=== PATIENT | female | born 1980 | race Caucasian/White ===

== ENCOUNTER 2020-08-16 11:56 | Emergency (ER) | payer MEDICAID ==
[~2020-08-16] VITALS: Ht 167.6 cm; Wt 61.4 kg
[2020-08-16 12:06] VITALS: Ht 167.6 cm; Wt 61.4 kg
[2020-08-16] MEDS ORDERED: CYCLOBENZAPRINE10 MG PO (13:21)
[2020-08-16] MEDS ORDERED: IBUPROFEN800 MG PO (13:21)
[2020-08-16] MEDS ORDERED: ACETAMINOPHEN500 M1 PO (13:21)
[2020-08-16 13:32] VITALS: BP 124/75
== END 2020-08-16 13:33 | disposition home or self-care (01) ==
LOC: D.ER 11:56
DX: M25.552 Pain in left hip (principal); S70.02XA Contusion of left hip, initial encounter; W19.XXXA Unspecified fall, initial encounter; M79.18 Myalgia, other site; T14.8XXA Other injury of unspecified body region, initial encounter

== ENCOUNTER 2020-12-11 18:33 | Emergency (ER) | payer MEDICAID ==
[~2020-12-11] VITALS: Ht 167.6 cm; Wt 59.1 kg
[~2020-12-11 18:33] MED LIST: ACETAMINOPHEN500 M1 PO; CYCLOBENZAPRINE10 MG PO; IBUPROFEN800 MG PO
[2020-12-11 18:44] VITALS: Ht 167.6 cm; Wt 59.1 kg
[2020-12-11 22:16] VITALS: BP 150/70
== END 2020-12-11 22:16 | disposition home or self-care (01) ==
LOC: D.ER 18:33
DX: Z04.71 Encounter for examination and observation following alleged adult physical abuse (principal); S09.8XXA Other specified injuries of head, initial encounter; Y33.XXXA Other specified events, undetermined intent, initial encounter; S06.0X0A Concussion without loss of consciousness, initial encounter; S20.211A Contusion of right front wall of thorax, initial encounter; S00.83XA Contusion of other part of head, initial encounter; S02.2XXA Fracture of nasal bones, initial encounter for closed fracture; F17.210 Nicotine dependence, cigarettes, uncomplicated